=== PATIENT | female | born 1935 | race Hispanic/Latino ===

== ENCOUNTER 2018-02-16 08:48 | Day surgery (SDC) | payer OTHER ==
[~2018-02-16] VITALS: Ht 157.5 cm; Wt 63.3 kg
[~2018-02-16 08:48] MED LIST: AEC81 PO; BIOT1TAB7 PO; BRIM5DRO OP; FENO54TA6 PO; FOLI1TAB61 PO; GARL1CAP PO; METOPROLOL PO; OMEG300C3 PO; SIMV40TA59 PO; SODIUM CHLORIDE 0.9% 1000ML 1,000 ML IV ONE; VIT C PO; VIT D PO; VIT E PO
[2018-02-16 09:43] VITALS: BP 112/54
[2018-02-16] MEDS ORDERED: METO-408 PO (10:29)
[2018-02-16 10:45] VITALS: BP 87/40
[2018-02-16 10:50] VITALS: BP 102/46
[2018-02-16 10:55] VITALS: BP 124/54
== END 2018-02-16 11:19 | disposition home or self-care (01) ==
LOC: ENDO 08:48 → DAH 08:48 → ENDO 11:19
PROVIDERS: ATTEND Internal Medicine Gastroenterology
DX: K29.50 Unspecified chronic gastritis without bleeding (principal); K21.0 Gastro-esophageal reflux disease with esophagitis; B96.81 Helicobacter pylori [H. pylori] as the cause of diseases classified elsewhere; K44.9 Diaphragmatic hernia without obstruction or gangrene; K31.89 Other diseases of stomach and duodenum; Z90.710 Acquired absence of both cervix and uterus; Z98.890 Other specified postprocedural states; E78.2 Mixed hyperlipidemia; I25.10 Atherosclerotic heart disease of native coronary artery without angina pectoris; I45.10 Unspecified right bundle-branch block; Z79.899 Other long term (current) drug therapy; Z95.1 Presence of aortocoronary bypass graft; Z88.8 Allergy status to other drugs, medicaments and biological substances
CPT/HCPCS: 43239; 43249; 88305; 93005; A4606; J7030; 43235

== ENCOUNTER → 2018-11-25 | Outpatient (CLI) | payer OTHER ==
[~2018-11-25] MED LIST changes: -AEC81 PO; -BIOT1TAB7 PO; -GARL1CAP PO; +METO-408 PO; -METOPROLOL PO; -OMEG300C3 PO; -SODIUM CHLORIDE 0.9% 1000ML 1,000 ML IV ONE
== END | disposition home or self-care (01) ==
LOC: SHCH 13:57
PROVIDERS: ATTEND Internal Medicine Cardiovascular Disease
DX: I11.0 Hypertensive heart disease with heart failure (principal); I50.22 Chronic systolic (congestive) heart failure; I05.1 Rheumatic mitral insufficiency
CPT/HCPCS: 93306

== ENCOUNTER → 2018-12-27 | Outpatient (CLI) | payer OTHER | END | disposition home or self-care (01) | LOC: SHCH 13:32 | PROVIDERS: ATTEND Internal Medicine Cardiovascular Disease | DX: I65.23 Occlusion and stenosis of bilateral carotid arteries (principal); L02.415 Cutaneous abscess of right lower limb | CPT/HCPCS: 93880 ==